=== PATIENT | female | born 1960 | race Caucasian/White ===

== ENCOUNTER 2023-07-24 18:43 | Emergency (ER) | payer MEDICARE, OTHER, SELFPAY ==
[2023-07-24 19:00] VITALS: BP 120/68
--- NOTE | 2023-07-24 20:05 | ED.GENMED ---
History of Present Illness
General
Chief Complaint: Headache
Source: patient
Exam Limitations: none
Time Seen by Provider: 07/24/23 19:41
Travel History
Have you had any contact with someone who has COVID-19?: No
Do you have any symptoms of coronavirus? Fever > 100 degrees, chills, cough, shortness of breath, sore throat, loss of taste or smell, muscle aches, or headache?: No
History of Present Illness
History of Present Illness:
This is a 62 year old female that comes in with c/o left sided headache pain. State that this started last night and is a sharp pain on the left sided of her head. state that when she coughs it hurts and that there is a burning. States that
yesterday her vision was blurred for about an hour. States that she continues with the headache today. Denies any fever, chills, chest pain, SOB, abd pain, nausea, vomiting, diarrhea, dizziness, urinary burning.
Past History
Past History
ED Past Medical History: Asthma, Cancer (Breast cancer ), Psychiatric (on multiple psych meds, Anxiety Depression, ) and Other (Uterine fibroids causing bladder outlet obstruction, Diverticulitis, )
ED Past Surgical History: Gynecological (Hysterectomy), Tonsilectomy and Other (Left breast cancer with Lumpectomy, bilateral inguinal hernia repair, D&C, Rhinoplasty)
Social History
Tobacco: Smoker
Alcohol: None
Drug: None
Personal: Single
Living: alone
Employment: Disabled
Family History
Family History: Other ([place] )
Review of Systems
Review of Systems
All Other Systems: ROS reviewed and negative except as documented in HPI and ROS
Constitutional: Reports no symptoms; Denies fever or chills
EENT: Reports no symptoms
Respiratory: Reports no symptoms; Denies cough or trouble breathing
Cardiac: Reports no symptoms; Denies chest pain
ABD/GI: Reports no symptoms; Denies abdominal pain, nausea, vomiting or diarrhea
: Reports no symptoms; Denies dysuria, frequency or urgency
Musculoskeletal: Reports no symptoms
Skin: Reports no symptoms
Neurological: Reports headache (Left sided of head); Denies dizzy
Psychiatric: Reports no symptoms
Phy Exam
General Physical Exam
General Presentation: no apparent distress
General age: appears stated age
General Skin: warm and dry
General Habitus: elderly
General Mental: alert
General Hydration: appears well hydrated
ENT Exam
ENT Exam: TM's normal, pharynx normal and neck supple
Eye Exam
Eye Exam: EOMI
Cardiovascular Exam
Cardiovascular Exam: regular rate/rhythm, no edema, no murmur and normal peripheral pulses
Pulmonary Exam
Pulmonary Exam: lungs clear, no respiratory distress, no rales, chest non tender, no crackles, no rhonchi, no wheezing and no cough
Gastrointestinal Exam
Gastrointestinal Exam: normal bowel sounds, non tender, soft, no organomegaly, no pulsatile mass and non distended
NIH Stroke Score
Level of Consciousness: 0 - Alert
LOC questions: 0-Answers both correctly
LOC Commands: 0-Performs both correctly
Best Gaze: 0-Normal
Visual Flowers: 0=Normal, no visual loss
Facial palsy: 0=Normal, symmetrical
Motor - Right Arm: 0=No drift 10 seconds
Motor - Left Arm: 0=No drift 10 seconds
Motor - Right Le-No drift 5 seconds
Motor - Left Le-No drift 5 seconds
Limb Ataxia: 0-Absent
Sensation: 0-Normal
Best Language: 0-No aphasia
Dysarthria: 0-Normal
Extinction and Inattention: 0-No abnormality
Total Score:: 0
Musculoskeletal Exam
Musculoskeletal Exam: full ROM, no edema and other (Hand grasp and push pulls equal)
Skin Exam
Skin Exam: normal color, warm/dry, no rash and no petechia
Psychiatric Exam
Psychiatric Exam: normal mood/affect
Course
Orders/Labs/Results
Orders:
Orders
07/24/23 20:04
Ketorolac [Toradol] 30 mg IV NOW STA
07/24/23 20:05
CT Head W/o Iv Contrast Urgent
Comment:
Reason For Exam: left sided head pain
07/24/23 20:30
Complete Blood Count/With Diff Urgent
Comprehensive Metabolic Panel Urgent
07/24/23 20:32
Ibuprofen [Motrin] 600 mg .ROUTE .STK-MED ONE
07/24/23 20:33
Ibuprofen [Motrin] 600 mg PO NOW STA
Abnormal Lab Results
07/24/23
20:30
MPV 10.6 H fL
(7.4-10.4)
Glucose 111 H mg/dl
(70-99)
07/24/23 20:30
07/24/23 20:30
glucose nonfasting. Otherwise normal labs.
Vital Signs
Initial and Last Documented VS:
Initial Vital Signs
Temp Pulse Resp BP Pulse Ox
98.2 F 82 22 120/68 96
07/24/23 19:00 07/24/23 19:00 07/24/23 19:00 07/24/23 19:00 07/24/23 19:00
Last Documented Vital Signs
Temp Pulse Resp BP Pulse Ox
98.2 F 82 22 120/68 96
07/24/23 19:00 07/24/23 19:00 07/24/23 19:00 07/24/23 19:00 07/24/23 19:00
MDM/Problems Addressed
Differential Diagnosis Includes:
Headache, shingles before rash
MDM/Problems Addressed:
This is a 62 year old female that comes in with c/o headache. States that she started last night with a headache and there is a burning in the left sided of her head. States that she had blurred vision yesterday for about 1 hour.
Will check labs, CT head and medicate for headache pain
Back into see patient. Explained that her blood work is normal along with her CT scan of the head. Patient will need to watch for any rash. Patient to follow up with the family doctor for recheck. Return with any concerns.
Chronic conditions affecting care:
NA
Acute Exacerbation and/or Progression of Chronic Illness:
NA
*Radiology
Radiology exam reviewed: radiology read reviewed (CT head-No acute intracranial abnormality. )
*Pulse Oximetry
Patient hypoxic: no
*EKG
Interpreted by ED Provider?: NA
Rate: EKG- N/A
*Business And Financial Counsel Interpretation
Rate: Business And Financial Counsel- N/A
*Critical Care Note
Total Time (30-74mins, 75-104mins- exclusive of procedures): Not Applicable
ED Attending Note
-
Portions of this chart may have been created with voice recognition software.� Occasional wrong word or��sound alike� substitutions may have occurred due to the inherent limitations of voice recognition software.
Discharge Plan
Departure
Patient Disposition: Home (Routine Discharge)
Date of Disposition: 07/24/23
Time of Disposition: 22:13
Patient with high blood pressure during this ER visit?: No
Condition: Good
Covid-19: Not Applicable
Discharge Problem:
Headache
Instructions: Headache, Adult (DC)
Prescriptions:
No Action
pravastatin 40 MG tablet
40 mg PO HS
albuterol sulfate [Ventolin HFA] 90 mcg/actuation HFA aerosol inhaler
2 puff INHALATION R Q4 PRN (Reason: SOB/WHEEZING)
Vraylar 1.5 mg capsule
1.5 mg PO HS
aspirin 81 mg capsule
81 mg PO DAILY Qty: 30 0RF
Referrals:
George Merrill MD [Family Provider] - Follow up in 2-3 days
Activity Restrictions/Additional Instructions:
As discussed, your blood work is normal along with the CT of the head. Please watch for any type of rash. Follow up with the family doctor for recheck. You may continue with Tylenol 1000mg every 6 hours for headache pain and Ibuprofen 600mg every 6
hours with food for pain. IF YOU HAVE ANY OTHER CONCERNS PLEASE RETURN TO THE EMERGENCY ROOM.
Interventions
Interventions:
*Risk Screen - Suicide Last Done: 07/24/23 19:00
*General Assessment Last Done: 07/24/23 20:36
*Neglect/Abuse Screening Last Done: 07/24/23 19:00
ED- Fall Risk Assessment Last Done: 07/24/23 22:27
*ED COVID-19 Vaccine History Last Done: 07/24/23 20:35
*Nursing Disposition Last Done: 07/24/23 22:27
ED-EENT Assessment Last Done: 07/24/23 20:37
ED- Neurological Assessment Last Done: 07/24/23 20:37
ED Swallowing Screen Last Done: 07/24/23 21:00
Discharge Date and Time
Discharge Date/Time: 07/24/23 22:28
[2023-07-24 20:35] VITALS: BMI 21.3
--- NOTE | 2023-07-24 20:54 | PTCARENOTE ---
Pt refused IV. RN explained we can get labs and give pain meds through the IV. Pt still refused IV. Pt did allowed nurse to draw labs. Pt refused IV Toradol. Motrin 600mg po order given. Pt refused and states Motrin hurts her stomach. PAPER SPOOLER made
aware.
[2023-07-24 20:59] LABS: % Basophils 0.3 % (0-2); % Eosinophils 1.2 % (0-6); % Immature Granulocytes 0.1 % (0-0.5); % Lymphocytes 34.4 % (20.5-51.1); % Monocytes 4.1 % (1.7-9.3); % Neutrophils 59.9 % (42.2-75.2); Absolute Eosinophils 0.1 10^3/uL (0-0.7); Absolute Lymphocytes 3.2 10^3/uL (1.2-3.4); Absolute Monocytes 0.4 10^3/uL (0.1-0.6); Absolute Neutrophils 5.6 10^3/uL (1.4-6.5); Hematocrit 38.8 % (37.0-47.0); Hemoglobin 13.6 g/dL (12.0-16.0); Mean Corp Hgb Conc. 35.1 g/dL (33.0-37.0); Mean Corpuscular Hgb 30.4 pg (27.0-31.0); Mean Corpuscular Volume 86.8 fL (81.0-99.0); Mean Platelet Volume 10.6 fL (7.4-10.4); Nucleated Red Blood Cells % 0 %; Platelet Count 265 10^3/uL (130-400); Red Blood Cell Count 4.47 10^6/uL (4.20-5.40); White Blood Cell Count 9.3 10^3/uL (4.8-10.8)
[2023-07-24 21:14] LABS: ALT (SGPT) 16 U/L (0-35); AST (SGOT) 21 U/L (14-36); Alkaline Phosphatase 75 U/L (38-126); Blood Urea Nitrogen 10 mg/dl (7-17); Calcium 9.1 mg/dl (8.4-10.2); Carbon Dioxide 24 mmol/L (22-30); Chloride 106 mmol/L (98-107); Estimated Creatinine Clearance 53 ml/min; Glucose 111 mg/dl (70-99); Potassium 3.7 mmol/L (3.5-5.1); Sodium 136 mmol/L (135-145); Total Bilirubin 0.4 mg/dl (0.2-1.3); Total Protein 6.4 g/dl (6.3-8.2); eGFR > 60.00
== END 2023-07-24 22:28 | disposition home or self-care (01) ==
LOC: EMR 18:43
PROVIDERS: Clinical Nurse Specialist Family Health; EMERGENCY PHYSICIAN Student in an Organized Health Care Education/Training Program; FAMILY PHYSICIAN Family Medicine
DX: R51.9 Headache, unspecified (principal); J45.909 Unspecified asthma, uncomplicated; F17.200 Nicotine dependence, unspecified, uncomplicated; Z85.3 Personal history of malignant neoplasm of breast; Z90.710 Acquired absence of both cervix and uterus
CPT/HCPCS: 99284; 96374; 70450; 80053; 85025

== ENCOUNTER 2024-01-30 15:02 | Emergency (ER) | payer MEDICARE, MEDICAID, SELFPAY ==
[2024-01-30 15:08] VITALS: BP 140/83
--- NOTE | 2024-01-30 16:38 | ED.GENMED ---
History of Present Illness
<Pepe Islas PA-C - Last Filed: 01/30/24 20:33>
General
Chief Complaint: Swallowing Problem
Time Seen by Provider: 01/30/24 15:38
History of Present Illness
History of Present Illness:
63-year-old female presents for evaluation of throat pain that began after ingesting a tablet of pravastatin. She felt as though the tablet got stuck. Since that time she has had pain with any swallowing but denies any choking or inability of food
or liquids to pass.
Past History
<Pepe Islas PA-C - Last Filed: 01/30/24 20:33>
Past History
ED Past Medical History: Asthma, Cancer (Breast cancer ), Psychiatric (on multiple psych meds, Anxiety Depression, ) and Other (Uterine fibroids causing bladder outlet obstruction, Diverticulitis, )
ED Past Surgical History: Gynecological (Hysterectomy), Tonsilectomy and Other (Left breast cancer with Lumpectomy, bilateral inguinal hernia repair, D&C, Rhinoplasty)
Social History
Tobacco: Smoker
Alcohol: None
Drug: None
Personal: Single
Living: alone
Employment: Disabled
Family History
Family History: Other ([place] )
Review of Systems
<Pepe Islas PA-C - Last Filed: 01/30/24 20:33>
Review of Systems
Allergies reviewed?: Yes
All Other Systems: ROS reviewed and negative except as documented in HPI and ROS
Phy Exam
<Pepe Islas PA-C - Last Filed: 01/30/24 20:33>
Physical Exam
Physical Exam:
GEN: Well appearing, NAD, WDWN
HEENT: Oral mucosa moist, no scleral icterus, oropharynx is clear
Cardiac: Regular rate
Lung: No respiratory distress, no tachypnea
MSK: No gross deformity or injuries
Skin: Good color, no pallor or jaundice, no rashes, no palpable subcutaneous emphysema of the chest or neck
Neuro: AO x3, moves all extremities freely
Psych: Calm, cooperative
Course
<Pepe Islas PA-C - Last Filed: 01/30/24 20:33>
Vital Signs
Initial and Last Documented VS:
Initial Vital Signs
Temp Pulse Resp BP Pulse Ox
98.2 F 69 18 140/83 96
01/30/24 15:08 01/30/24 15:08 01/30/24 15:08 01/30/24 15:08 01/30/24 15:08
Last Documented Vital Signs
Temp Pulse Resp BP Pulse Ox
98.2 F 69 18 140/83 96
01/30/24 15:08 01/30/24 15:08 01/30/24 15:08 01/30/24 15:08 01/30/24 15:08
<Luis Angel Reddy DO - Last Filed: 01/30/24 16:46>
Vital Signs
Initial and Last Documented VS:
Initial Vital Signs
Temp Pulse Resp BP Pulse Ox
98.2 F 69 18 140/83 96
01/30/24 15:08 01/30/24 15:08 01/30/24 15:08 01/30/24 15:08 01/30/24 15:08
Last Documented Vital Signs
Temp Pulse Resp BP Pulse Ox
98.2 F 69 18 140/83 96
01/30/24 15:08 01/30/24 15:08 01/30/24 15:08 01/30/24 15:08 01/30/24 15:08
<Pepe Islas PA-C - Last Filed: 01/30/24 20:33>
MDM/Problems Addressed
MDM/Problems Addressed:
Likely pill esophagitis. She is able to tolerate p.o. liquids without difficulty. Will treat with PPIs and Carafate supportively. She has no chest pain or subcutaneous emphysema on palpation of the chest or neck to suggest an esophageal
perforation
<Pepe Islas PA-C - Last Filed: 01/30/24 20:33>
*Critical Care Note
Total Time (30-74mins, 75-104mins- exclusive of procedures): Not Applicable
ED Attending Note
<Pepe Islas PA-C - Last Filed: 01/30/24 20:33>
-
Portions of this chart may have been created with voice recognition software.� Occasional wrong word or��sound alike� substitutions may have occurred due to the inherent limitations of voice recognition software.
<Luis Angel Reddy, - Last Filed: 01/30/24 16:46>
ED Attending Note
Patient seen and examined by attending physician: Yes
I performed the substantive portion of visit, reviewed & personally made and approve the management plan that is documented in note by myself or LIZETTE.: Yes
ED Attending Note:
I have seen and evaluated the patient with a [id number] encounter. I have spoken to the advance practicer provider and involved in the medical history, the physical exam, medical decision making.
Evaluation and management service: agree unless noted differently below.
Results interpretation: agree unless noted differently below.
Focused HPI: 63-year-old female presenting with sore throat. Patient noted yesterday when she swallowed her Prevacid. She feels like it is stuck in her throat. She is able to eat and drink without difficulty
Physical exam: Well-appearing nontoxic. Swallowing secretions
Medical Decision Making: We discussed likely pill esophagitis. Will start Carafate and discussed return precautions
Discharge Plan
Departure
Patient Disposition: Home (Routine Discharge)
Date of Disposition: 01/30/24
Time of Disposition: 16:38
Patient with high blood pressure during this ER visit?: No
Discharge Problem:
Pill esophagitis
Instructions: Esophagitis
Prescriptions:
New
pantoprazole 40 mg tablet,delayed release (DR/EC)
40 mg PO DAILY Qty: 14 0RF
sucralfate [Carafate] 1 gram tablet
1 g PO AC Qty: 20 0RF
Rx Instructions:
Dissolve in 10mL clear liquid prior to drinking
No Action
pravastatin 40 MG tablet
40 mg PO HS
albuterol sulfate [Ventolin HFA] 90 mcg/actuation HFA aerosol inhaler
2 puff INHALATION R Q4 PRN (Reason: SOB/WHEEZING)
Vraylar 1.5 mg capsule
1.5 mg PO HS
aspirin 81 mg capsule
81 mg PO DAILY Qty: 30 0RF
Referrals:
UNKNOWN - PT DOES,NOT KNOW [Family Provider] -
Interventions
Interventions:
*Risk Screen - Suicide Last Done: 01/30/24 15:08
*General Assessment Last Done: 01/30/24 15:08
*Neglect/Abuse Screening Last Done: 01/30/24 15:08
*ED COVID-19 Vaccine History Last Done: 01/30/24 15:08
*Nursing Disposition Last Done: 01/30/24 16:56
ED- Pulmonary Assessment Last Done: 01/30/24 16:55
ED- Neurological Assessment Last Done: 01/30/24 16:55
Discharge Date and Time
Discharge Date/Time: 01/30/24 16:56
Print Language: WOLOF
== END 2024-01-30 16:56 | disposition home or self-care (01) ==
LOC: EMR 15:02
PROVIDERS: EMERGENCY PHYSICIAN Student in an Organized Health Care Education/Training Program
DX: K20.80 Other esophagitis without bleeding (principal); J45.909 Unspecified asthma, uncomplicated; F41.8 Other specified anxiety disorders; D25.9 Leiomyoma of uterus, unspecified; F17.200 Nicotine dependence, unspecified, uncomplicated; Z85.3 Personal history of malignant neoplasm of breast; Z90.710 Acquired absence of both cervix and uterus
CPT/HCPCS: 99282

== ENCOUNTER 2024-03-18 16:03 | Emergency (ER) | payer OTHER, MEDICAID, SELFPAY ==
[2024-03-18 16:06] VITALS: BP 156/93
--- NOTE | 2024-03-18 16:53 | ED.GENMED ---
History of Present Illness
General
Chief Complaint: Skin Problem
Time Seen by Provider: 03/18/24 16:14
History of Present Illness
History of Present Illness:
63-year-old female with no reported past medical history presenting for concern of redness and swelling to her foot. Reports that she noticed that yesterday. Denies any inciting injury or trauma. Her primary concern is for a blood clot. Denies
any history of blood clot. Denies any recent travel or surgery. Denies chest or tingling. Denies fever. Denies additional acute medical complaint
Past History
Past History
ED Past Medical History: Asthma, Cancer (Breast cancer ), Psychiatric (on multiple psych meds, Anxiety Depression, ) and Other (Uterine fibroids causing bladder outlet obstruction, Diverticulitis, )
ED Past Surgical History: Gynecological (Hysterectomy), Tonsilectomy and Other (Left breast cancer with Lumpectomy, bilateral inguinal hernia repair, D&C, Rhinoplasty)
Social History
Tobacco: Smoker
Alcohol: None
Drug: None
Personal: Single
Living: alone
Employment: Disabled
Family History
Family History: Other ([place] )
Phy Exam
Physical Exam
Physical Exam:
General: Well-appearing, no clinical signs of dehydration, nontoxic and in no acute distress
HEENT: protecting airway
Neck: appears supple
CV: Normal heart rate
Resp: No accessory muscle use, no increased work of breathing
Abd: No distention
Extremities: No deformities, no swelling, no redness. Mild tenderness to the anterior aspect of the right foot. Sensation and pulses intact
Neuro: alert, no focal neurologic deficit
: deferred
Rectal: deferred
Psych: Normal affect
Skin: Intact
Course
Orders/Labs/Results
Orders:
Orders
03/18/24 16:39
Foot, Right 2 View [CR Foot - Right 2 Views] Urgent
Comment:
Reason For Exam: pain anterior foot
03/18/24 18:39
Venous Doppler Lwr Ext Rt [US Periph Venous LOWER Ext RT] Urgent
Comment:
Reason For Exam: pain and swelling
Vital Signs
Initial and Last Documented VS:
Initial Vital Signs
Temp Pulse Resp BP Pulse Ox
98.7 F 98 17 156/93 99
03/18/24 16:06 03/18/24 16:06 03/18/24 16:06 03/18/24 16:06 03/18/24 16:06
Last Documented Vital Signs
Temp Pulse Resp BP Pulse Ox
98.7 F 93 17 136/88 98
03/18/24 16:06 03/18/24 17:48 03/18/24 16:06 03/18/24 17:48 03/18/24 17:48
MDM/Problems Addressed
MDM/Problems Addressed:
63-year-old female presenting to the emergency department for right foot red and swelling. Vital signs are normal.
On exam, is in no acute distress comfort, does appear anxious with strange affect. Unremarkable examination of the right lower extremity. Unclear etiology of patient's symptoms. No obvious swelling or redness that she is describing she continues
to express concern for DVT. Communicated low suspicion for DVT with no swelling, redness, warmth. No significant tenderness. Patient continuously requesting ultrasound. Agreeable to obtaining for patient sanity, however expressed low utility.
19:30 - Ultrasound x-ray without acute abnormality. Suspect musculoskeletal quality to symptoms. Feel stable for discharge. Advised supportive therapy return precautions discussed and patient verbalized understanding.
*Critical Care Note
Total Time (30-74mins, 75-104mins- exclusive of procedures): Not Applicable
ED Attending Note
-
Portions of this chart may have been created with voice recognition software.� Occasional wrong word or��sound alike� substitutions may have occurred due to the inherent limitations of voice recognition software.
Discharge Plan
Departure
Prescriptions:
No Action
pravastatin 40 MG tablet
40 mg PO HS
albuterol sulfate [Ventolin HFA] 90 mcg/actuation HFA aerosol inhaler
2 puff INHALATION R Q4 PRN (Reason: SOB/WHEEZING)
Vraylar 1.5 mg capsule
1.5 mg PO HS
aspirin 81 mg capsule
81 mg PO DAILY Qty: 30 0RF
pantoprazole 40 mg tablet,delayed release (DR/EC)
40 mg PO DAILY Qty: 14 0RF
sucralfate [Carafate] 1 gram tablet
1 g PO AC Qty: 20 0RF
Rx Instructions:
Dissolve in 10mL clear liquid prior to drinking
Referrals:
George Merrill MD [Family Provider] -
Interventions
Interventions:
*Risk Screen - Suicide Last Done: 03/18/24 16:06
*General Assessment Last Done: 03/18/24 16:06
*Neglect/Abuse Screening Last Done: 03/18/24 16:06
*ED COVID-19 Vaccine History Last Done: 03/18/24 16:06
ED-Skin Assessment Last Done: 03/18/24 17:37
Discharge Date and Time
Print Language: THAI
[2024-03-18 17:48] VITALS: BP 136/88
== END 2024-03-18 20:09 | disposition home or self-care (01) ==
LOC: EMR 16:03
PROVIDERS: EMERGENCY PHYSICIAN Student in an Organized Health Care Education/Training Program; FAMILY PHYSICIAN Family Medicine
DX: M79.671 Pain in right foot (principal); F17.200 Nicotine dependence, unspecified, uncomplicated
CPT/HCPCS: 99284; 73620; 93971

== ENCOUNTER 2024-03-24 10:04 | Emergency (ER) | payer OTHER, MEDICAID, SELFPAY ==
[2024-03-24 10:26] VITALS: BP 154/90
[2024-03-24 10:58] VITALS: BP 140/104
[2024-03-24 11:02] VITALS: BMI 27.1
--- NOTE | 2024-03-24 11:07 | ED.GENMED ---
History of Present Illness
General
Chief Complaint: Musculo-Skeletal Complaint
Source: patient and records
Time Seen by Provider: 03/24/24 10:52
History of Present Illness
History of Present Illness:
63yoF with a history of hypertension, hyperlipidemia, psychiatric disorder presenting for evaluation of multiple complaints. She reports atraumatic R foot pain as well as R groin pain that has been ongoing for the past several weeks. She reports
redness to the right foot which she is very concerned about. She was seen in the ED on 03/18/24 for her foot pain. She had foot x-rays as well as a venous duplex which were unremarkable. She saw her PCP a few days ago who referred her to orthopedics
for her foot and ordered a pelvic ultrasound. She was prescribed naproxen which she tried without improvement. She has a history of a right inguinal hernia repair as an infant.
Past History
Past History
ED Past Medical History: Asthma, Cancer (Breast cancer ), Psychiatric (on multiple psych meds, Anxiety Depression, ) and Other (Uterine fibroids causing bladder outlet obstruction, Diverticulitis, )
ED Past Surgical History: Gynecological (Hysterectomy), Tonsilectomy and Other (Left breast cancer with Lumpectomy, bilateral inguinal hernia repair, D&C, Rhinoplasty)
Social History
Tobacco: Smoker
Alcohol: None
Drug: None
Personal: Single
Living: alone
Employment: Disabled
Family History
Family History: Other ([place] )
Phy Exam
General Physical Exam
General Presentation: well appearing and no apparent distress
General age: appears stated age
General Skin: warm and dry
General Habitus: normal
General Mental: alert
ENT Exam
ENT Exam: normocephalic
Pulmonary Exam
Pulmonary Exam: no respiratory distress
Gastrointestinal Exam
Gastrointestinal Exam: non tender, soft, non distended and no inguinal hernia
Marcin Coma Scale
Eye Opening: Spontaneous
Verbal Response: Oriented
Motor Response: Obeys Commands
GCS Total Score: 15
Musculoskeletal Exam
Musculoskeletal Exam: other (Mild erythema to dorsum of R foot without associated warmth or edema. 2+ DP pulse. ROM intact. )
Skin Exam
Skin Exam: warm/dry
Psychiatric Exam
Psychiatric Exam: anxious
Course
Orders/Labs/Results
Orders:
Orders
03/24/24 11:05
US Groin (Imaging Only) RT Urgent
Comment:
Reason For Exam: R groin pain
03/24/24 11:57
US Pelvis [US Pelvis Only (non-obstetric)] Urgent
Comment:
Reason For Exam: R groin pain
03/24/24 12:25
Urinalysis Reflex To Culture Urgent
Date Specimen was Collected: 03/24/24
Time Specimen was Collected: 12:20
Urine Microscopic Reflex Cult Urgent
Abnormal Lab Results
03/24/24
12:25
Ur Occult Blood Reflex Trace A
(Negative)
Urine RBC 3-6 A /HPF
(0-2)
Urine Bacteria (Reflex) Few A
(Negative)
03/24/24 11:05
03/24/24 11:05
Vital Signs
Initial and Last Documented VS:
Initial Vital Signs
Temp Pulse Resp BP Pulse Ox
98.0 F 97 18 154/90 94
03/24/24 10:26 03/24/24 10:26 03/24/24 10:26 03/24/24 10:26 03/24/24 10:26
Last Documented Vital Signs
Temp Pulse Resp BP Pulse Ox
98.0 F 97 18 166/91 94
03/24/24 10:26 03/24/24 10:26 03/24/24 10:26 03/24/24 12:25 03/24/24 11:13
MDM/Problems Addressed
Differential Diagnosis Includes:
63yoF here with R groin and R foot pain x several weeks. Seen in ED last week for the same and had negative foot x-rays and venous duplex. She is afebrile and hemodynamically stable. She is non-toxic appearing. No palpable hernia noted on exam and
there is no abdominal tenderness. RLE is neurovascularly intact. Mild erythema to the dorsum of the foot without any associated warmth or swelling. Differential diagnosis includes but is not limited to: hernia, ovarian pathology, UTI, musculoskeletal
Initial ED plan: Check CBC, CMP, UA, and pelvic/groin ultrasound.
*Critical Care Note
Total Time (30-74mins, 75-104mins- exclusive of procedures): Not Applicable
Update Note
Update Note:
Patient refusing lab work. She is also refusing transvaginal ultrasound. Order switched to transabdominal pelvic ultrasound. Ultrasound is negative for hernias or acute findings. UA with trace blood without signs of infection. She is stable for
discharge. Patient is an active smoker. Will refer to urology for microscopic hematuria workup. She has an appt with orthopedics in 3 days regarding her foot pain. She was discharged in stable condition.
ED Attending Note
-
Portions of this chart may have been created with voice recognition software.� Occasional wrong word or��sound alike� substitutions may have occurred due to the inherent limitations of voice recognition software.
Discharge Plan
Departure
Patient Disposition: Home (Routine Discharge)
Date of Disposition: 03/24/24
Time of Disposition: 13:35
Patient with high blood pressure during this ER visit?: Yes
Discharge Problem:
Right inguinal pain, Pain in right foot, Microscopic hematuria
Instructions: Muscle and bone pain - Discharge instructions
Prescriptions:
No Action
pravastatin 40 MG tablet
40 mg PO HS
albuterol sulfate [Ventolin HFA] 90 mcg/actuation HFA aerosol inhaler
2 puff INHALATION R Q4 PRN (Reason: SOB/WHEEZING)
Vraylar 1.5 mg capsule
1.5 mg PO HS
aspirin 81 mg capsule
81 mg PO DAILY Qty: 30 0RF
pantoprazole 40 mg tablet,delayed release (DR/EC)
40 mg PO DAILY Qty: 14 0RF
sucralfate [Carafate] 1 gram tablet
1 g PO AC Qty: 20 0RF
Rx Instructions:
Dissolve in 10mL clear liquid prior to drinking
Referrals:
George Merrill MD [Family Provider] -
Ravi Reyes Jr., MD [Active] -
Activity Restrictions/Additional Instructions:
Continue taking naproxen as prescribed by your family doctor. You can also take Tylenol as needed.
Please follow-up with your family doctor and urology for the blood seen in your urine.
Return to the ER with any worsening symptoms.
Interventions
Interventions:
*Risk Screen - Suicide Last Done: 03/24/24 10:27
*General Assessment Last Done: 03/24/24 10:27
*Neglect/Abuse Screening Last Done: 03/24/24 10:27
ED- Fall Risk Assessment Last Done: 03/24/24 11:04
*ED COVID-19 Vaccine History Last Done: 03/24/24 11:04
*Nursing Disposition Last Done: 03/24/24 13:51
ED-Musculoskeletal Assessment Last Done: 03/24/24 11:04
Discharge Date and Time
Discharge Date/Time: 03/24/24 13:51
Print Language: SUDANESE
[2024-03-24 12:25] VITALS: BP 166/91
[2024-03-24 12:39] LABS: Urine Albumin Negative (Neg - Trace); Urine Bilirubin Negative (Negative); Urine Character Clear (Clear); Urine Color Yellow; Urine Glucose Negative (Negative); Urine Ketone Negative (Negative); Urine Leukocyte Negative (Negative); Urine Nitrite Negative (Negative); Urine Occult Blood Trace (Negative); Urine Specific Gravity 1.005 (<1.030); Urine Urobilinogen Negative (Neg - 1+)
[2024-03-24 13:39] LABS: Urine Bacteria Few (Negative); Urine White Cell 0-2 /HPF (0-5)
== END 2024-03-24 13:51 | disposition home or self-care (01) ==
LOC: EMR 10:04
PROVIDERS: Physician Assistant; EMERGENCY PHYSICIAN Emergency Medicine; FAMILY PHYSICIAN Family Medicine
DX: R10.31 Right lower quadrant pain (principal); M79.671 Pain in right foot; R31.29 Other microscopic hematuria; I10 Essential (primary) hypertension; E78.00 Pure hypercholesterolemia, unspecified; J45.909 Unspecified asthma, uncomplicated; F41.8 Other specified anxiety disorders; N32.0 Bladder-neck obstruction; D25.9 Leiomyoma of uterus, unspecified; F17.200 Nicotine dependence, unspecified, uncomplicated; Z85.3 Personal history of malignant neoplasm of breast; Z90.710 Acquired absence of both cervix and uterus
CPT/HCPCS: 99284; 76856; 76882; 81003; 81015

== ENCOUNTER 2024-03-31 15:02 | Emergency (ER) | payer OTHER, MEDICAID, SELFPAY ==
[2024-03-31 15:10] VITALS: BP 140/89
[2024-03-31 15:40] LABS: Urine Albumin Negative (Neg - Trace); Urine Bilirubin Negative (Negative); Urine Character Clear (Clear); Urine Color Yellow; Urine Glucose Negative (Negative); Urine Ketone Negative (Negative); Urine Leukocyte Negative (Negative); Urine Nitrite Negative (Negative); Urine Occult Blood 2+ (Negative); Urine Specific Gravity 1.025 (<1.030); Urine Urobilinogen Negative (Neg - 1+)
[2024-03-31 15:41] LABS: % Basophils 0.3 % (0-2); % Eosinophils 2.6 % (0-6); % Immature Granulocytes 0.2 % (0-0.5); % Lymphocytes 28.9 % (20.5-51.1); % Monocytes 5.8 % (1.7-9.3); % Neutrophils 62.2 % (42.2-75.2); Absolute Eosinophils 0.3 10^3/uL (0-0.7); Absolute Monocytes 0.6 10^3/uL (0.1-0.6); Absolute Neutrophils 6.4 10^3/uL (1.4-6.5); Hematocrit 39.5 % (37.0-47.0); Hemoglobin 13.4 g/dL (12.0-16.0); Mean Corp Hgb Conc. 33.9 g/dL (33.0-37.0); Mean Corpuscular Hgb 29.1 pg (27.0-31.0); Mean Corpuscular Volume 85.7 fL (81.0-99.0); Mean Platelet Volume 10.1 fL (7.4-10.4); Nucleated Red Blood Cells % 0 %; Platelet Count 272 10^3/uL (130-400); Red Blood Cell Count 4.61 10^6/uL (4.20-5.40); Red Cell Dist. Width 13.9 % (11.5-14.5); White Blood Cell Count 10.4 10^3/uL (4.8-10.8)
[2024-03-31 15:49] LABS: Urine Squamous Cell 26-30 /LPF (Few)
[2024-03-31 15:50] LABS: Urine Bacteria Few (Negative); Urine White Cell 0-2 /HPF (0-5)
[2024-03-31 16:07] LABS: ALT (SGPT) 21 U/L (0-35); AST (SGOT) 23 U/L (14-36); Albumin 4.2 g/dl (3.5-5.0); Alkaline Phosphatase 111 U/L (38-126); Blood Urea Nitrogen 15 mg/dl (7-17); Calcium 9.1 mg/dl (8.4-10.2); Carbon Dioxide 25 mmol/L (22-30); Chloride 104 mmol/L (98-107); Glucose 118 mg/dl (70-99); Lipase 72 U/L (23-300); Potassium 4.2 mmol/L (3.5-5.1); Sodium 140 mmol/L (135-145); Total Bilirubin 0.1 mg/dl (0.2-1.3); Total Protein 6.6 g/dl (6.3-8.2); eGFR > 60.00
[2024-03-31] MEDS: OMNIPAQUE 50 ML PO (17:29)
[2024-03-31] MEDS: TYLENOL 650 MG PO (18:18)
[2024-03-31 20:24] VITALS: BP 136/83
--- NOTE | 2024-03-31 23:44 | ED.GENMED ---
History of Present Illness
General
Chief Complaint: Abdominal Symptoms
Source: patient
Exam Limitations: none
Time Seen by Provider: 03/31/24 16:37
Nursing documentation reviewed up to this point in time: agreed with
Past History
Past History
ED Past Medical History: Asthma, Cancer (Breast cancer ), Psychiatric (on multiple psych meds, Anxiety Depression, ) and Other (Uterine fibroids causing bladder outlet obstruction, Diverticulitis, )
ED Past Surgical History: Gynecological (Hysterectomy), Tonsilectomy and Other (Left breast cancer with Lumpectomy, bilateral inguinal hernia repair, D&C, Rhinoplasty)
Social History
Tobacco: Smoker
Alcohol: None
Drug: None
Personal: Single
Living: alone
Employment: Disabled
Family History
Family History: Other ([place] )
Course
Orders/Labs/Results
Orders:
Orders
03/31/24 15:13
Electrocardiogram (*1) Urgent
Reason for Study: Abdominal Pain
EKG- Treatment ONCE
03/31/24 15:33
Complete Blood Count/With Diff Urgent
Comprehensive Metabolic Panel Urgent
Lipase Urgent
Urinalysis Reflex To Culture Urgent
Date Specimen was Collected: 03/31/24
Time Specimen was Collected: 15:13
Urine Microscopic Reflex Cult Urgent
03/31/24 17:12
CT Abd/pel W Iv And Oral Contr Urgent
Comment:
Reason For Exam: RLQ pain
Iohexol [Omnipaque] See Protocol PO NOW STA
03/31/24 18:15
Acetaminophen [Tylenol] 650 mg PO NOW STA
Abnormal Lab Results
03/31/24
15:33
Glucose 118 H mg/dl
(70-99)
Total Bilirubin 0.1 L mg/dl
(0.2-1.3)
Ur Occult Blood Reflex 2+ A
(Negative)
Urine RBC 3-6 A /HPF
(0-2)
Urine Bacteria (Reflex) Few A
(Negative)
03/31/24 15:33
03/31/24 15:33
Vital Signs
Initial and Last Documented VS:
Initial Vital Signs
Temp Pulse Resp BP Pulse Ox
97.9 F 86 16 140/89 99
03/31/24 15:10 03/31/24 15:10 03/31/24 15:10 03/31/24 15:10 03/31/24 15:10
Last Documented Vital Signs
Temp Pulse Resp BP Pulse Ox
98.2 F 80 22 136/83 99
03/31/24 20:24 03/31/24 20:24 03/31/24 20:24 03/31/24 20:24 03/31/24 20:24
ED Attending Note
-
Portions of this chart may have been created with voice recognition software.� Occasional wrong word or��sound alike� substitutions may have occurred due to the inherent limitations of voice recognition software.
Discharge Plan
Departure
Patient Disposition: Home (Routine Discharge)
Date of Disposition: 03/31/24
Time of Disposition: 20:17
Patient with high blood pressure during this ER visit?: No
Condition: Good
Covid-19: Not Applicable
Discharge Problem:
Abdominal pain
Instructions: Abdominal Pain
Prescriptions:
No Action
pravastatin 40 MG tablet
40 mg PO HS
albuterol sulfate [Ventolin HFA] 90 mcg/actuation HFA aerosol inhaler
2 puff INHALATION R Q4 PRN (Reason: SOB/WHEEZING)
Vraylar 1.5 mg capsule
1.5 mg PO HS
aspirin 81 mg capsule
81 mg PO DAILY Qty: 30 0RF
pantoprazole 40 mg tablet,delayed release (DR/EC)
40 mg PO DAILY Qty: 14 0RF
sucralfate [Carafate] 1 gram tablet
1 g PO AC Qty: 20 0RF
Rx Instructions:
Dissolve in 10mL clear liquid prior to drinking
Referrals:
George Merrill MD [Family Provider] - Follow up in 2-3 days
Interventions
Interventions:
*Risk Screen - Suicide Last Done: 03/31/24 15:10
*General Assessment Last Done: 03/31/24 19:52
*Neglect/Abuse Screening Last Done: 03/31/24 15:10
*ED COVID-19 Vaccine History Last Done: 03/31/24 19:52
*Nursing Disposition Last Done: 03/31/24 21:04
GA-Ohtrfl-Cmfbwvzwun Assessment Last Done: 03/31/24 19:52
Discharge Date and Time
Discharge Date/Time: 03/31/24 21:08
Print Language: SERBIAN
--- NOTE | 2024-04-01 18:46 | ED.GENMED ---
History of Present Illness
General
Chief Complaint: Abdominal Symptoms
Source: patient
Exam Limitations: none
Time Seen by Provider: 03/31/24 16:37
Nursing documentation reviewed up to this point in time: agreed with
History of Present Illness
History of Present Illness:
PPatient to ED with RLQ abdominal pain. Symptoms started yesterday. States faith was initially epigastrict but is now RLQ. Brought ses to ED for eval.
Past History
Past History
ED Past Medical History: Asthma, Cancer (Breast cancer ), Psychiatric (on multiple psych meds, Anxiety Depression, ) and Other (Uterine fibroids causing bladder outlet obstruction, Diverticulitis, )
ED Past Surgical History: Gynecological (Hysterectomy), Tonsilectomy and Other (Left breast cancer with Lumpectomy, bilateral inguinal hernia repair, D&C, Rhinoplasty)
Social History
Tobacco: Smoker
Alcohol: None
Drug: None
Personal: Single
Living: alone
Employment: Disabled
Family History
Family History: Other ([place] )
Review of Systems
Review of Systems
Allergies reviewed?: Yes
All Other Systems: ROS reviewed and negative except as documented in HPI and ROS
Constitutional: Reports no symptoms
EENT: Reports no symptoms
Respiratory: Reports no symptoms
ABD/GI: Reports abdominal pain (RLQ abdominal pain)
: Reports no symptoms
Musculoskeletal: Reports no symptoms
Skin: Reports no symptoms
Neurological: Reports no symptoms
Phy Exam
General Physical Exam
General Presentation: well appearing and no apparent distress
General age: appears stated age
General Skin: warm and dry
General Habitus: normal
General Mental: alert
Gastrointestinal Exam
Gastrointestinal Exam: normal bowel sounds, soft, no organomegaly, non distended and no cva tenderness
Palpation: left upper quadrant: No tenderness, left lower quadrant: No tenderness, right upper quadrant: No tenderness and right lower quadrant: Moderate tenderness
Musculoskeletal Exam
Musculoskeletal Exam: full ROM and neuro vasc intact
Skin Exam
Skin Exam: normal color, warm/dry and no rash
Psychiatric Exam
Psychiatric Exam: normal mood/affect
Course
Orders/Labs/Results
Orders:
Orders
03/31/24 15:13
Electrocardiogram (*1) Urgent
Reason for Study: Abdominal Pain
EKG- Treatment ONCE
03/31/24 15:33
Complete Blood Count/With Diff Urgent
Comprehensive Metabolic Panel Urgent
Lipase Urgent
Urinalysis Reflex To Culture Urgent
Date Specimen was Collected: 03/31/24
Time Specimen was Collected: 15:13
Urine Microscopic Reflex Cult Urgent
03/31/24 17:12
CT Abd/pel W Iv And Oral Contr Urgent
Comment:
Reason For Exam: RLQ pain
Iohexol [Omnipaque] See Protocol PO NOW STA
03/31/24 18:15
Acetaminophen [Tylenol] 650 mg PO NOW STA
Abnormal Lab Results
03/31/24
15:33
Glucose 118 H mg/dl
(70-99)
Total Bilirubin 0.1 L mg/dl
(0.2-1.3)
Ur Occult Blood Reflex 2+ A
(Negative)
Urine RBC 3-6 A /HPF
(0-2)
Urine Bacteria (Reflex) Few A
(Negative)
03/31/24 15:33
03/31/24 15:33
Vital Signs
Initial and Last Documented VS:
Initial Vital Signs
Temp Pulse Resp BP Pulse Ox
97.9 F 86 16 140/89 99
03/31/24 15:10 03/31/24 15:10 03/31/24 15:10 03/31/24 15:10 03/31/24 15:10
Last Documented Vital Signs
Temp Pulse Resp BP Pulse Ox
98.2 F 80 22 136/83 99
03/31/24 20:24 03/31/24 20:24 03/31/24 20:24 03/31/24 20:24 03/31/24 20:24
*Radiology
Radiology exam reviewed: radiology read reviewed
*Pulse Oximetry
Patient hypoxic: no
*Critical Care Note
Total Time (30-74mins, 75-104mins- exclusive of procedures): Not Applicable
Update Note
Update Note:
Patient to ED with RLQ abdominal pain. Labs, CT reviewed. No findings to explain her pain. No v/d. Afebrile. Will discharge home, close follow up with PCP. Given instructions on s/s to return to ED and she is agreeable to plan.
ED Attending Note
-
Portions of this chart may have been created with voice recognition software.� Occasional wrong word or��sound alike� substitutions may have occurred due to the inherent limitations of voice recognition software.
Discharge Plan
Departure
Patient Disposition: Home (Routine Discharge)
Date of Disposition: 03/31/24
Time of Disposition: 20:17
Patient with high blood pressure during this ER visit?: No
Condition: Good
Covid-19: Not Applicable
Discharge Problem:
Abdominal pain
Instructions: Abdominal Pain
Prescriptions:
No Action
pravastatin 40 MG tablet
40 mg PO HS
albuterol sulfate [Ventolin HFA] 90 mcg/actuation HFA aerosol inhaler
2 puff INHALATION R Q4 PRN (Reason: SOB/WHEEZING)
Vraylar 1.5 mg capsule
1.5 mg PO HS
aspirin 81 mg capsule
81 mg PO DAILY Qty: 30 0RF
pantoprazole 40 mg tablet,delayed release (DR/EC)
40 mg PO DAILY Qty: 14 0RF
sucralfate [Carafate] 1 gram tablet
1 g PO AC Qty: 20 0RF
Rx Instructions:
Dissolve in 10mL clear liquid prior to drinking
Referrals:
George Merrill MD [Family Provider] - Follow up in 2-3 days
Interventions
Interventions:
*Risk Screen - Suicide Last Done: 03/31/24 15:10
*General Assessment Last Done: 03/31/24 19:52
*Neglect/Abuse Screening Last Done: 03/31/24 15:10
*ED COVID-19 Vaccine History Last Done: 03/31/24 19:52
*Nursing Disposition Last Done: 03/31/24 21:04
OQ-Nrpnka-Qtjclbbzan Assessment Last Done: 03/31/24 19:52
Discharge Date and Time
Discharge Date/Time: 03/31/24 21:08
Print Language: IRANIAN
== END 2024-03-31 21:08 | disposition home or self-care (01) ==
LOC: EMR 15:02
PROVIDERS: Emergency Medicine; EMERGENCY PHYSICIAN Emergency Medicine; FAMILY PHYSICIAN Family Medicine
DX: R10.31 Right lower quadrant pain (principal); F17.200 Nicotine dependence, unspecified, uncomplicated
CPT/HCPCS: 99285; 74177; 80053; 81003; 81015; 83690; 85025; 93005; Q9967

== ENCOUNTER 2024-11-05 19:40 | Emergency (ER) | payer OTHER, SELFPAY ==
[2024-11-05 19:43] VITALS: BP 144/86
[2024-11-05 20:14] LABS: % Basophils 0.3 % (0-2); % Eosinophils 1.7 % (0-6); % Immature Granulocytes 0.3 % (0-0.5); % Lymphocytes 31.8 % (20.5-51.1); % Monocytes 4.7 % (1.7-9.3); % Neutrophils 61.2 % (42.2-75.2); Absolute Eosinophils 0.2 10^3/uL (0-0.7); Absolute Lymphocytes 2.9 10^3/uL (1.2-3.4); Absolute Monocytes 0.4 10^3/uL (0.1-0.6); Absolute Neutrophils 5.6 10^3/uL (1.4-6.5); Hematocrit 40.9 % (37.0-47.0); Hemoglobin 13.7 g/dL (12.0-16.0); Mean Corp Hgb Conc. 33.5 g/dL (33.0-37.0); Mean Corpuscular Hgb 29.2 pg (27.0-31.0); Mean Corpuscular Volume 87.2 fL (81.0-99.0); Mean Platelet Volume 10.3 fL (7.4-10.4); Nucleated Red Blood Cells % 0 %; Platelet Count 281 10^3/uL (130-400); Red Blood Cell Count 4.69 10^6/uL (4.20-5.40); White Blood Cell Count 9.2 10^3/uL (4.8-10.8)
[2024-11-05 20:23] LABS: ALT (SGPT) 13 U/L (0-35); AST (SGOT) 19 U/L (14-36); Albumin 4.1 g/dl (3.5-5.0); Alkaline Phosphatase 96 U/L (38-126); Blood Urea Nitrogen 12 mg/dl (7-17); Calcium 9.2 mg/dl (8.4-10.2); Carbon Dioxide 26 mmol/L (22-30); Chloride 109 mmol/L (98-107); Glucose 99 mg/dl (70-99); Potassium 4.1 mmol/L (3.5-5.1); Sodium 140 mmol/L (135-145); Total Bilirubin 0.5 mg/dl (0.2-1.3); Total Protein 6.9 g/dl (6.3-8.2); eGFR > 60.00
[2024-11-05 20:35] LABS: Troponin I < 0.012 ng/ml
[2024-11-05 22:34] VITALS: BP 144/84
[2024-11-06 02:24] VITALS: BP 119/64
--- NOTE | 2024-11-06 04:16 | ED.GENMED ---
History of Present Illness
General
Chief Complaint: Cardiac Symptoms
Source: patient
Exam Limitations: none
Time Seen by Provider: 11/06/24 01:18
Nursing documentation reviewed up to this point in time: agreed with
History of Present Illness
History of Present Illness:
64-year-old female presenting to the emergency department today with concerns of an episode of chest pain went to urgent care normal EKG and the being discharged home but then called EMS to come to the ER due to a 2-week long posterior headache she
has had described as achy and throbbing. Denies significant headache during my assessment. Denies any nausea vomiting fevers. No neck stiffness.
Past History
Past History
ED Past Medical History: Asthma, Cancer (Breast cancer ), Psychiatric (on multiple psych meds, Anxiety Depression, ) and Other (Uterine fibroids causing bladder outlet obstruction, Diverticulitis, )
ED Past Surgical History: Gynecological (Hysterectomy), Tonsilectomy and Other (Left breast cancer with Lumpectomy, bilateral inguinal hernia repair, D&C, Rhinoplasty)
Social History
Tobacco: Smoker
Alcohol: None
Drug: None
Personal: Single
Living: alone
Employment: Disabled
Family History
Family History: Other ([place] )
Review of Systems
Review of Systems
Allergies reviewed?: Yes
All Other Systems: ROS reviewed and negative except as documented in HPI and ROS
Phy Exam
Physical Exam
Physical Exam:
GENERAL: Alert , in no apparent distress
EYE: pupils equal and reactive
NECK: Supple, no significant adenopathy.
ENT: o/p clr, mmm.
CARDIAC: Regular rate and rhythm .
LUNGS: Clear breath sounds bilaterally, no acute respiratory distress, no wheezes/rales/rhonchi
ABDOMEN: Soft, without focal tenderness, no r/g, no cvat
NEUROLOGICAL: Alert and oriented, no focal neuro deficits 5 out of 5 upper and lower extremity strength normal sensation happening bilaterally normal finger-nose and [id number] no pronator
SKIN: Warm and dry, skin intact.
MUSCULOSKELETAL: No edema, well perfused.
PSYCH: Normal and appropriate interaction.
Course
Orders/Labs/Results
Orders:
Orders
11/05/24 19:46
Electrocardiogram (*1) Urgent
Reason for Study: Chest Pain
CR Chest - 2 Views Urgent
Comment:
Reason For Exam: chest pain
11/05/24 19:47
EKG- Treatment ONCE
11/05/24 20:01
Complete Blood Count/With Diff Urgent
Comprehensive Metabolic Panel Urgent
Troponin I Urgent
11/06/24 01:31
Electrocardiogram (*1) Urgent
Reason for Study: Chest Pain
CT Head W/o Iv Contrast Urgent
Comment:
Reason For Exam: multiple weeks of MARSH
Abnormal Lab Results
11/05/24
20:01
Chloride 109 H mmol/L
(98-107)
11/05/24 20:01
11/05/24 20:01
Vital Signs
Initial and Last Documented VS:
Initial Vital Signs
Temp Pulse Resp BP Pulse Ox
98.2 F 86 20 144/86 96
11/05/24 19:43 11/05/24 19:43 11/05/24 19:43 11/05/24 19:43 11/05/24 19:43
Last Documented Vital Signs
Temp Pulse Resp BP Pulse Ox
98.2 F 81 18 119/64 99
11/05/24 19:43 11/06/24 02:24 11/06/24 02:24 11/06/24 02:24 11/06/24 02:24
MDM/Problems Addressed
MDM/Problems Addressed:
64-year-old female presenting to the emergency department today with concerns of chest pain as well as headache. Chest pain over the past few days but now asymptomatic headache over the past 2 weeks minimal at this point. Denies this being worst
headache of life or abrupt in onset. Here patient is well-appearing no distress. Cardiac workup normal EKG normal troponin negative. Chest x-ray with subtle abnormality however patient without fever cough or symptoms consistent with pneumonia.
Head CT obtained without acute abnormalities otherwise patient stable for discharge. Return precautions given.
*Critical Care Note
Total Time (30-74mins, 75-104mins- exclusive of procedures): Not Applicable
ED Attending Note
-
Portions of this chart may have been created with voice recognition software.� Occasional wrong word or��sound alike� substitutions may have occurred due to the inherent limitations of voice recognition software.
Discharge Plan
Departure
Patient Disposition: Home (Routine Discharge)
Date of Disposition: 11/06/24
Time of Disposition: 04:17
Patient with high blood pressure during this ER visit?: No
Condition: Good
Covid-19: Not Applicable
Discharge Problem:
Headache, Chest pain
Instructions: Chest Pain CBC Follow Up
Prescriptions:
No Action
pravastatin 40 MG tablet
40 mg PO HS
albuterol sulfate [Ventolin HFA] 90 mcg/actuation HFA aerosol inhaler
2 puff INHALATION R Q4 PRN (Reason: SOB/WHEEZING)
Vraylar 1.5 mg capsule
1.5 mg PO HS
aspirin 81 mg capsule
81 mg PO DAILY Qty: 30 0RF
pantoprazole 40 mg tablet,delayed release (DR/EC)
40 mg PO DAILY Qty: 14 0RF
sucralfate [Carafate] 1 gram tablet
1 g PO AC Qty: 20 0RF
Rx Instructions:
Dissolve in 10mL clear liquid prior to drinking
Referrals:
George Merrill MD [Family Provider] -
Activity Restrictions/Additional Instructions:
You came to the emergency department today with concerns of headache and chest pain. Here you had a reassuring assessment. Please follow closely with your primary care doctor within 1 week. Return for any worsening, new or concerning symptoms.
Interventions
Interventions:
*Risk Screen - Suicide Last Done: 11/06/24 01:40
*General Assessment Last Done: 11/05/24 19:43
*ED COVID-19 Vaccine History Last Done: 11/06/24 01:40
ED- Pulmonary Assessment Last Done: 11/06/24 01:40
ED- Cardiac Assessment Last Done: 11/06/24 01:40
Discharge Date and Time
Print Language: CAPE VERDEAN
== END 2024-11-06 04:46 | disposition home or self-care (01) ==
LOC: EMR 19:40
PROVIDERS: Student in an Organized Health Care Education/Training Program; EMERGENCY PHYSICIAN Emergency Medicine; FAMILY PHYSICIAN Family Medicine
DX: R51.9 Headache, unspecified (principal); R07.89 Other chest pain; J45.909 Unspecified asthma, uncomplicated; F17.200 Nicotine dependence, unspecified, uncomplicated; Z85.3 Personal history of malignant neoplasm of breast; Z90.710 Acquired absence of both cervix and uterus
CPT/HCPCS: 99284; 70450; 71046; 80053; 84484; 85025; 93005